=== PATIENT | male | born 1995 | race Hispanic/Latino ===

== ENCOUNTER 2019-11-26 01:44 | Emergency (ER) | payer SELFPAY ==
[2019-11-26 02:51] VITALS: BP 135/63
--- NOTE | 2019-11-26 04:01 | Emergency Department Report ---
ED Extremity Problem HPI - General Chief complaint: Extremity Problem,Nontraumatic Stated complaint: LEFT FOOT TOE PAIN Time Seen by Provider: 11/26/19 03:57 Source: patient Mode of arrival: Ambulatory Limitations: No Limitations - History of Present Illness Initial comments: 24-year-old male presents to the emergency room complaining of left fourth toe burning pain 10 out of 10 that woke him up from his sleep. Patient denies any injury to his toe. Patient states he has a history of athletic feet. He reports that the pain is burning. He states his been soaking his feet in Epson salt and taken ibuprofen and Tylenol without much relief. MD Complaint: extremity pain Onset/Timin -: days(s) Location: left, toe History of Same: No Severity scale (0 -10): 10 Quality: burning Consistency: constant Improves with: nothing Worsens with: nothing Associated Symptoms: denies other symptoms - Related Data Previous Rx's Medication Instructions Recorded Last Taken Type Clotrimazole/Betamethasone Dip 1 applicatio TP BID #45 cream..g. 11/26/19 Unknown Rx [Lotrisone Cream] Allergies Allergy/AdvReac Type Severity Reaction Status Date / Time No Known Allergies Allergy Unverified 11/26/19 02:26 ED Review of Systems ROS: Stated complaint: LEFT FOOT TOE PAIN Other details as noted in HPI Comment: All other systems reviewed and negative ED Past Medical Hx - Past Medical History Previous Medical History?: No - Surgical History Past Surgical History?: Yes Additional Surgical History: Left thumb surgery - Social History Smoking Status: Current Some Day Smoker - Medications Home Medications: Home Medications Medication Instructions Recorded Confirmed Last Taken Type Clotrimazole/Betamethasone Dip 1 applicatio TP BID #45 cream..g. 11/26/19 Unknown Rx [Lotrisone Cream] ED Physical Exam - General Limitations: No Limitations General appearance: alert, in no apparent distress - Head Head exam: Present: atraumatic, normocephalic - Expanded Lower Extremity Exam Left Upper Leg exam: Present: normal inspection Knee exam: Present: normal inspection Lower Leg exam: Present: normal inspection Ankle exam: Present: normal inspection, full ROM Foot/Toe exam: Present: full ROM, tenderness (Fourth digit). Absent: swelling, abrasion, laceration, ecchymosis, deformity Neuro vascular tendon exam: Present: no vascular compromise Gait: Positive: observed and normal - Neurological Exam Neurological exam: Present: alert, oriented X3 - Skin Skin exam: Present: other (Between all toes there is thick white foul-smelling discharge) ED Course Vital Signs 11/26/19 02:27 Temperature 97.8 F Pulse Rate 66 Respiratory 20 Rate Blood Pressure 135/63 O2 Sat by Pulse 98 Oximetry ED Medical Decision Making - Radiology Data Radiology results: report reviewed [facility] [address] [place] [address] XRay Report Signed Patient: ALESSANDRA LOUIS MR#: [id number] : 1995 Acct:[id number] Age/Sex: 24 / M ADM Date: 11/26/19 Loc: ED Attending Dr: Ordering Physician: HERMELINDA RAMIREZ Date of Service: 11/26/19 Procedure(s): XR foot 2V LT Accession Number(s): [id number] cc: HERMELINDA RAMIREZ Fluoro Time In Minutes: LEFT FOOT 2 VIEWS INDICATION / CLINICAL INFORMATION: Left foot fourth toe pain COMPARISON: None available. FINDINGS: BONES / JOINT(S): No acute fracture or subluxation. No significant arthritis. SOFT TISSUES: No significant abnormality. ADDITIONAL FINDINGS: None. Signer Name: Ronaldo Cortes MD Signed: 11/26/2019 4:54 AM Workstation Name: [id number] Transcribed By: ES Dictated By: Ronaldo Cortes MD Electronically Authenticated By: Ronaldo Cortes MD Signed Date/Time: 11/26/19 0454 DD/ 045 TD/TT: - Medical Decision Making 24-year-old male presents to the emergency room complaining of left fourth toe burning pain 10 out of 10 that woke him up from his sleep. Patient denies any injury to his toe. Patient states he has a history of athletic feet. He reports that the pain is burning. He states his been soaking his feet in Epson salt and taken ibuprofen and Tylenol without much relief. We will get a x-ray of left foot if negative will treat for athletes feet. Critical care attestation.: If time is entered above; I have spent that time in minutes in the direct care of this critically ill patient, excluding procedure time. ED Disposition Clinical Impression: Tinea pedis Disposition: DC-01 TO HOME OR SELFCARE Is pt being admited?: No Does the pt Need Aspirin: No Condition: Stable Instructions: Tinea Pedis (ED) Additional Instructions: X-rays negative for any acute findings. You can use Lotrisone which is rxva-goj-lthidds antifungal medication between your toes. Tylenol or ibuprofen for pain management. 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 Prescriptions: Clotrimazole/Betamethasone Dip [Lotrisone Cream] 1 applicatio TP BID #45 cream..g. Referrals: [facility] [Primary Care Provider] - 3-5 Days [facility] [Provider Group] - 3-5 Days
--- NOTE | 2019-11-26 04:58 | XRay Report ---
LEFT FOOT 2 VIEWS INDICATION / CLINICAL INFORMATION: Left foot fourth toe pain COMPARISON: None available. FINDINGS: BONES / JOINT(S): No acute fracture or subluxation. No significant arthritis. SOFT TISSUES: No significant abnormality. ADDITIONAL FINDINGS: None. Signer Name: Ronaldo Cortes MD Signed: 11/26/2019 4:54 AM Workstation Name: [id number]
== END 2019-11-26 05:17 | disposition home or self-care (01) ==
LOC: ED 01:44
DX: B35.3 Tinea pedis (principal); F17.200 Nicotine dependence, unspecified, uncomplicated; Z79.899 Other long term (current) drug therapy; Z98.890 Other specified postprocedural states
CPT/HCPCS: 99283